=== PATIENT | female | born 2005 | race Caucasian/White ===

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

== ENCOUNTER → 2024-12-01 | Outpatient (CLI) | payer BC | LOC: M WUC 10:18 | PROVIDERS: ATTEND Family Medicine | DX: R05.9 Cough, unspecified (principal) ==